=== PATIENT | female | born 2005 | race Caucasian/White ===

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

== ENCOUNTER 2025-06-01 09:32 | Outpatient (CLI) | payer BC | END 2025-06-01 09:33 | disposition home or self-care (01) | LOC: SCSMRI 09:32 | PROVIDERS: ATTEND Pediatrics Pediatric Rheumatology | DX: M45.8 Ankylosing spondylitis sacral and sacrococcygeal region (principal); N83.01 Follicular cyst of right ovary; N83.02 Follicular cyst of left ovary; M51.369 Other intervertebral disc degeneration, lumbar region without mention of lumbar back pain or lower extremity pain; M51.35 Other intervertebral disc degeneration, thoracolumbar region | CPT/HCPCS: 72158; 72197 ==